=== PATIENT | male | born 1995 | race Two or more races ===

== ENCOUNTER 2017-02-28 00:45 | Emergency (ER) | payer BC ==
--- NOTE | 2017-02-28 01:30 | ED ---
Throat Pain/Nasal Congestion - HPI Summary HPI Summary: Patient presents to ED with tonsillar bleeding after a tonsillectomy 1 week ago. He states he has had mild bleeding after the surgery, but today he noticed a "gush" of blood without clots. He is continuing to spit up some blood , but the bleeding has decreased in severity. He denies other problems. He denies doing anything different, and the bleeding happened spontaneously. He denies health problems and takes no medications. He is from [place] and his surgery was at [facility]. He is otherwise healthy. - History of Current Complaint Chief Complaint: EDThroatPain Time Seen by Provider: 02/28/17 01:06 Hx Obtained From: Patient Onset/Duration: Sudden Onset Severity: Moderate Associated Signs And Symptoms: Positive: Negative - Epiglottits Risk Factors Epiglottis Risk Factors: Negative - Allergies/Home Medications Allergies/Adverse Reactions: Allergies Allergy/AdvReac Type Severity Reaction Status Date / Time Azithromycin [From Zithromax] Allergy Rash And Verified 09/05/16 07:55 Itching PMH/Surg Hx/FS Hx/Imm Hx Previously Healthy: Yes - Immunization History Hx Pertussis Vaccination: No Immunizations Up to Date: Unable to Obtain/Confirm Infectious Disease History: Denies: Traveled Outside the [place] in Last 30 Days - Family History Known Family History: Positive: Diabetes - grandfather on father's side - Social History Occupation: Unemployed Lives: With Family Alcohol Use: None Hx Substance Use: No Substance Use Type: Reports: None Hx Tobacco Use: No Smoking Status (MU): Never Smoked Tobacco Review of Systems Constitutional: Negative Eyes: Negative Positive: Sore Throat Cardiovascular: Negative Respiratory: Negative Positive: see HPI Skin: Negative Neurological: Negative All Other Systems Reviewed And Are Negative: Yes Physical Exam Triage Information Reviewed: Yes Vital Signs On Initial Exam: Initial Vitals Temp Pulse Resp BP Pulse Ox 98.1 F 67 18 139/76 100 02/28/17 00:54 02/28/17 00:54 02/28/17 00:54 02/28/17 00:54 02/28/17 00:54 Vital Signs Reviewed: Yes Appearance: Positive: Well-Appearing, Well-Nourished Skin: Positive: Warm, Skin Color Reflects Adequate Perfusion Eyes: Positive: Normal, EOMI, CAMMY ENT: Positive: Other - right s/p tonsillectomy with tonsillar erythema and recent bleed (without active bleeding) without healing eschar; left s/p tonsillectomy without tonsillar bleeding and with an attached healing eschar Neck: Positive: Supple, No Lymphadenopathy Respiratory/Lung Sounds: Positive: Clear to Auscultation, Breath Sounds Present Cardiovascular: Positive: Normal, RRR Musculoskeletal: Positive: Normal, Strength/ROM Intact Neurological: Positive: Sensory/Motor Intact, Alert, Oriented to Person Place, Time Psychiatric: Positive: Normal AVPU Assessment: Alert Diagnostics - Vital Signs Vital Signs Temp Pulse Resp BP Pulse Ox 02/28/17 00:54 98.1 F 67 18 139/76 100 - Laboratory Lab Statement: Any lab studies that have been ordered have been reviewed, and results considered in the medical decision making process. EENT Course/Dx - Course Course Of Treatment: Patient arrives with CC of bleeding from tonsils this evening. On physical exam right tonsil shows s/p tonsillectomy with tonsillar erythema and recent bleed (without active bleeding) without healing eschar; left s/p tonsillectomy without tonsillar bleeding and with an attached healing eschar. There is no active bleed identified, but patient continues to spit up and swallow small amounts of blood. Return precautions given. Patient called MD at [facility] and made aware. - Differential Diagnoses Differential Diagnoses: Other - s/p surgical bleeding, tonsillar bleeding, adenoid bleeding - Diagnoses Provider Diagnoses: Postoperative hemorrhage of tonsil Discharge - Discharge Plan Condition: Stable Disposition: HOME Referrals: [facility] [Primary Care Provider] - Additional Instructions: Minor bleeding is common following tonsillectomy. After the surgery, the tonsillar fossa develops a thick white patch (eschar) as it is healing. The eschar usually falls off after six to nine days, which may be associated with mild bleeding. Some experts feel the postoperative bleeding risks may be reduced by keeping a soft diet, reduced activity, and avoiding aspirin (or similar products).
[2017-02-28 02:23] VITALS: BP 121/70
== END 2017-02-28 02:18 | disposition home or self-care (01) ==
LOC: ED 00:45
DX: J95.830 Postprocedural hemorrhage of a respiratory system organ or structure following a respiratory system procedure (principal); Z88.1 Allergy status to other antibiotic agents
CPT/HCPCS: 99282